=== PATIENT | female | born 1950 | race Caucasian/White ===

== ENCOUNTER 2018-07-20 10:00 | Inpatient (IN) | payer OTHER ==
[~2018-07-20] VITALS: Ht 170.2 cm; Wt 90.7 kg
[2018-07-20] MEDS ORDERED: SODIUM CHLORIDE 0.9% 1,000 ML IV ONE (10:11)
[2018-07-20 10:31] LABS: Basophils # (auto) 0.2 uL; Basophils % (auto) 2.2 % (0.0-2.0); Eosinophils # (auto) 0.2 uL; Eosinophils % (auto) 2.6 % (0.0-7.0); Hematocrit 40.6 % (41.0-53.0); Hemoglobin 13.6 g/dL (13.5-17.5); Lymphocytes # (auto) 1.5 uL; Lymphocytes % (auto) 17.2 % (10.0-50.0); Mean Corpuscular Hemoglobin 28.6 pg (28.0-32.0); Mean Corpuscular Hgb Conc. 33.4 g/dL (32.0-36.0); Mean Corpuscular Volume 85.5 fL (80.0-100.0); Monocytes # (auto) 0.8 uL; Monocytes % (auto) 8.7 % (0.0-12.0); Neutrophils # (auto) 6.1 uL; Neutrophils % (auto) 69.3 % (37.0-80.0); Platelet Count (auto) 262 10^3/uL (140-450); Red Blood Cells 4.74 10^6/uL (4.5-5.90); Red Cell Distribution Width 14.6 % (11.8-14.3); White Blood Cell 8.8 10^3/uL (4.4-10.8)
[2018-07-20 10:47] LABS: INR 0.97 (0.9-1.15); Partial Thromboplastin Time 35.2 sec (23.78-33.04); Prothrombin Time 10.4 sec (9.27-12.13)
[2018-07-20 10:51] LABS: Albumin 3.5 g/dL (3.4-5.0); Anion Gap 7 (5-15); Blood Alcohol < 3.0 mg/dL (0-5); Blood Urea Nitrogen 20 mg/dL (7-18); Calcium 8.7 mg/dL (8.5-10.1); Carbon Dioxide 25 mmol/L (21-32); Chloride 103 mmol/L (98-107); Glucose 151 mg/dL (74-106); Potassium 3.7 mmol/L (3.5-5.1); Sodium 135 mmol/L (136-145)
[2018-07-20 10:57] LABS: Alanine Aminotransferase 26 U/L (16-61); Alkaline Phosphatase 80 U/L (45-117); Aspartate Aminotransferase 15 U/L (15-37); BUN/Creatinine Ratio 15.4; Bilirubin, Total 0.7 mg/dL (0.2-1.0); GFR African American 70 mL/min; GFR Non-African American 58 mL/min; Total Protein 7.7 g/dL (6.4-8.2)
[2018-07-20] MEDS ORDERED: CLOPIDOGREL BISULFATE 75 MG TAB PO ONE (11:00)
[2018-07-20] MEDS ORDERED: LORazepam 2MG/ML-1ML VIAL ONE (11:10)
[2018-07-20 12:17] LABS: Urine Bacteria MOD /hpf (None Seen); Urine Blood Negative /uL (Negative); Urine Specific Gravity 1.006 (1.001-1.035)
[2018-07-20 12:45] LABS: Alcohol, Urine < 3.0 mg/dL (0-5); Amphetamine Screen, Urine NEGATIVE (NEGATIVE); Barbiturate Scree,Urine NEGATIVE (NEGATIVE); Benzodiazephine Screen, Urine NEGATIVE (NEGATIVE); Cannabinoid Screen, Urine NEGATIVE (NEGATIVE); Cocaine Screen, Urine NEGATIVE (NEGATIVE); Opiate Scree,Urine NEGATIVE (NEGATIVE); Phencyclidine Screen, Urine NEGATIVE (NEGATIVE)
[2018-07-20] MEDS ORDERED: LEVEMIR SC (13:42)
[2018-07-20] MEDS ORDERED: BENZ1CAP24 (13:42)
[2018-07-20] MEDS ORDERED: MORP-74 (13:42)
[2018-07-20] MEDS ORDERED: MEMA1TAB2 (13:42)
[2018-07-20] MEDS ORDERED: PROP80CA40 (13:42)
[2018-07-20] MEDS ORDERED: ESCI5TAB14 (13:42)
[2018-07-20] MEDS ORDERED: AMLO2.5T6 (13:42)
[2018-07-20] MEDS ORDERED: DEXTROSE (50%) 50ML SYRG IV PRN (14:00)
[2018-07-20] MEDS ORDERED: cefTRIAXone 1GM/50ML D5W 50 ML IV ONE (14:00)
[2018-07-20] MEDS ORDERED: ACETAMINOPHEN 325 MG TAB PO PRN (14:15)
[2018-07-20] MEDS ORDERED: PROMETHAZINE W/CODEINE 5 ML ORAL SYRUP PO PRN (14:15)
[2018-07-20] MEDS ORDERED: HYDROcodone-ACET 5/325MG TAB PO PRN (14:15)
[2018-07-20] MEDS ORDERED: ONDANSETRON HCL 4 MG/2 ML VIAL IV PRN (14:15)
[2018-07-20] MEDS ORDERED: DOCUSATE SOD 100 MG CAP PO PRN (14:15)
[2018-07-20] MEDS ORDERED: ASPirin-EC 81 mg tab PO ONE (14:15)
[2018-07-20] MEDS: PROPRANOLOL HCL 20 MG TAB PO SCH ×2 (14:25→22:00)
[2018-07-20] MEDS: FAMOTIDINE 20 MG TAB PO SCH (14:25)
[2018-07-20] MEDS ORDERED: HCTZ 25 MG TAB PO ONE (15:30)
[2018-07-20] MEDS ORDERED: cloNIDine HCL 0.1 MG TAB PO ONE (15:30)
[2018-07-20] MEDS ORDERED: glipiZIDE 5 MG TAB PO ONE (15:30)
[2018-07-20] MEDS ORDERED: LOSARTAN POTASSIUM 50 MG TAB PO ONE (15:30)
[2018-07-20] MEDS ORDERED: LORazepam 2MG/ML-1ML VIAL IV ONE (16:15)
[2018-07-20] MEDS: InsuLIN REG 1unit/0.01ml Soln (100units/ml) SC SCH ×2 (17:00→22:50)
[2018-07-20] MEDS: ACCU-CHEK COMFORT CURVE STRIP VI SCH ×2 (17:09→22:51)
[2018-07-20] MEDS ORDERED: LORazepam 2MG/ML-1ML VIAL IV PRN (21:45)
[2018-07-20 22:00] VITALS: BP 146/63
[2018-07-20] MEDS: MORPHINE SULF 30 mg ER tab PO SCH (22:00)
[2018-07-20] MEDS: hydrALAZINE HCL 25 MG TAB PO SCH (22:32)
[2018-07-20] MEDS: cloNIDine HCL 0.1 MG TAB PO SCH (22:48)
[2018-07-20] MEDS: SODIUM CHLOR 0.9% PF (SALINE LOCK) 10ML VIAL/SYR IV SCH (22:48)
[2018-07-20] MEDS: MEMANTINE HCL 5 MG TAB PO SCH (22:49)
[2018-07-20] MEDS: glipiZIDE 5 MG TAB PO SCH (22:49)
[2018-07-20] MEDS: amLODIPine BESYLATE 5 MG TAB PO SCH (22:50)
[2018-07-20] MEDS: INSULIN LANTUS (GLARGINE) 1 /0.01ml (100units/ml) SC SCH (22:51)
[2018-07-21 04:45] LABS: Basophils # (auto) 0.1 uL; Eosinophils # (auto) 0.3 uL; Eosinophils % (auto) 3.4 % (0.0-7.0); Hematocrit 37.9 % (36.0-46.0); Hemoglobin 12.5 g/dL (12.2-16.2); Lymphocytes # (auto) 1.3 uL; Lymphocytes % (auto) 15.6 % (10.0-50.0); Mean Corpuscular Hemoglobin 28.4 pg (28.0-32.0); Mean Corpuscular Volume 85.9 fL (80.0-100.0); Monocytes # (auto) 0.9 uL; Monocytes % (auto) 10.3 % (0.0-12.0); Neutrophils % (auto) 69.7 % (37.0-80.0); Nucleated Red Blood Cells % 0.1 %; Platelet Count (auto) 229 10^3/uL (140-450); Red Blood Cells 4.41 10^6/uL (4.0-5.20); Red Cell Distribution Width 15.4 % (11.8-14.3); White Blood Cell 8.6 10^3/uL (4.4-10.8)
[2018-07-21 05:00] VITALS: BP 135/77
[2018-07-21 05:01] LABS: Albumin 3.1 g/dL (3.4-5.0); Calcium 8.7 mg/dL (8.5-10.1); Potassium 3.8 mmol/L (3.5-5.1)
[2018-07-21 05:05] LABS: BUN/Creatinine Ratio 14.8; Bilirubin, Total 0.6 mg/dL (0.2-1.0); Total Protein 6.8 g/dL (6.4-8.2)
[2018-07-21] MEDS: SODIUM CHLOR 0.9% PF (SALINE LOCK) 10ML VIAL/SYR IV SCH ×3 (06:48→22:05)
[2018-07-21] MEDS: PROPRANOLOL HCL 20 MG TAB PO SCH ×3 (06:49→22:22)
[2018-07-21] MEDS: InsuLIN REG 1unit/0.01ml Soln (100units/ml) SC SCH ×4 (06:50→22:04)
[2018-07-21] MEDS: LEVOTHYROXINE SODIUM 25 MCG TAB PO SCH (06:50)
[2018-07-21] MEDS: ACCU-CHEK COMFORT CURVE STRIP VI SCH ×4 (06:51→22:04)
[2018-07-21 08:40] VITALS: BP 141/68
[2018-07-21] MEDS: cefTRIAXone 1GM/50ML D5W 50 ML IV SCH (09:00)
[2018-07-21] MEDS: cloNIDine HCL 0.1 MG TAB PO SCH ×2 (10:00→21:50)
[2018-07-21] MEDS: glipiZIDE 5 MG TAB PO SCH ×2 (10:00→21:51)
[2018-07-21] MEDS: FAMOTIDINE 20 MG TAB PO SCH (10:00)
[2018-07-21] MEDS: LOSARTAN POTASSIUM 50 MG TAB PO SCH (10:00)
[2018-07-21] MEDS ORDERED: CITALOPRAM HYDROBR 20 MG TAB PO SCH (10:00)
[2018-07-21] MEDS: hydrALAZINE HCL 25 MG TAB PO SCH ×2 (10:00→21:49)
[2018-07-21] MEDS: HCTZ 25 MG TAB PO SCH (10:00)
[2018-07-21] MEDS: MORPHINE SULF 30 mg ER tab PO SCH ×2 (10:00→22:00)
[2018-07-21] MEDS: MULTIPLE VITAMIN TAB PO SCH (10:00)
[2018-07-21] MEDS: MEMANTINE HCL 5 MG TAB PO SCH ×2 (10:00→21:49)
[2018-07-21 12:43] VITALS: BP 109/60
[2018-07-21] MEDS: ASPirin-EC 81 mg tab PO SCH (16:00)
[2018-07-21] MEDS: MECLIZINE HCL 25 MG TAB PO SCH ×2 (16:00→21:49)
[2018-07-21 16:45] VITALS: BP 124/61
[2018-07-21 21:40] VITALS: BP 144/59
[2018-07-21] MEDS: amLODIPine BESYLATE 5 MG TAB PO SCH (21:52)
[2018-07-21] MEDS: INSULIN LANTUS (GLARGINE) 1 /0.01ml (100units/ml) SC SCH (22:04)
[2018-07-21] MEDS ORDERED: PROPRANOLOL HCL 20 MG TAB ONE ×2 (22:09→22:11)
[2018-07-22 05:24] VITALS: BP_SYST 119; BP_SYST 89; BP_DIAS 57; BP_DIAS 61
[2018-07-22] MEDS: SODIUM CHLOR 0.9% PF (SALINE LOCK) 10ML VIAL/SYR IV SCH (06:00)
[2018-07-22] MEDS: PROPRANOLOL HCL 20 MG TAB PO SCH (06:00)
[2018-07-22] MEDS ORDERED: PROPRANOLOL HCL 20 MG TAB ONE ×2 (06:00→06:01)
[2018-07-22] MEDS: LEVOTHYROXINE SODIUM 25 MCG TAB PO SCH (06:18)
[2018-07-22] MEDS: MECLIZINE HCL 25 MG TAB PO SCH (06:18)
[2018-07-22] MEDS: ACCU-CHEK COMFORT CURVE STRIP VI SCH ×2 (07:08→12:07)
[2018-07-22] MEDS: InsuLIN REG 1unit/0.01ml Soln (100units/ml) SC SCH ×2 (07:08→11:30)
[2018-07-22 09:05] LABS: Folate (Folic Acid) 11.37 ng/mL (5.38-24)
[2018-07-22 09:31] VITALS: BP 137/56
[2018-07-22] MEDS: FAMOTIDINE 20 MG TAB PO SCH (09:50)
[2018-07-22] MEDS: cefTRIAXone 1GM/50ML D5W 50 ML IV SCH (09:50)
[2018-07-22] MEDS: HCTZ 25 MG TAB PO SCH (09:51)
[2018-07-22] MEDS: hydrALAZINE HCL 25 MG TAB PO SCH (09:52)
[2018-07-22] MEDS: MEMANTINE HCL 5 MG TAB PO SCH (09:52)
[2018-07-22] MEDS: LOSARTAN POTASSIUM 50 MG TAB PO SCH (09:53)
[2018-07-22] MEDS: MULTIPLE VITAMIN TAB PO SCH (09:54)
[2018-07-22] MEDS: glipiZIDE 5 MG TAB PO SCH (09:54)
[2018-07-22] MEDS: cloNIDine HCL 0.1 MG TAB PO SCH (09:55)
[2018-07-22] MEDS: MORPHINE SULF 30 mg ER tab PO SCH (10:00)
[2018-07-22] MEDS: ASPirin-EC 81 mg tab PO SCH (12:07)
== END 2018-07-22 13:40 | disposition home or self-care (01) | DRG 689 ==
LOC: ER 10:03 → EDSEX 10:03 → OVERFLOW 10:04 → CENTRAL 19:54
PROVIDERS: ADMIT Internal Medicine; ATTEND Internal Medicine Geriatric Medicine
DX: N39.0 Urinary tract infection, site not specified (principal); G93.41 Metabolic encephalopathy; E87.1 Hypo-osmolality and hyponatremia; H81.10 Benign paroxysmal vertigo, unspecified ear; E11.22 Type 2 diabetes mellitus with diabetic chronic kidney disease; E11.21 Type 2 diabetes mellitus with diabetic nephropathy; N18.3 Chronic kidney disease, stage 3 (moderate); Z51.5 Encounter for palliative care; E66.9 Obesity, unspecified; F17.200 Nicotine dependence, unspecified, uncomplicated; H40.9 Unspecified glaucoma; H54.7 Unspecified visual loss; I07.1 Rheumatic tricuspid insufficiency; I12.9 Hypertensive chronic kidney disease with stage 1 through stage 4 chronic kidney disease, or unspecified chronic kidney disease; Z79.4 Long term (current) use of insulin; Z80.1 Family history of malignant neoplasm of trachea, bronchus and lung; Z82.0 Family history of epilepsy and other diseases of the nervous system; Z82.3 Family history of stroke; Z85.118 Personal history of other malignant neoplasm of bronchus and lung; Z86.73 Personal history of transient ischemic attack (TIA), and cerebral infarction without residual deficits; Z90.710 Acquired absence of both cervix and uterus; Z79.899 Other long term (current) drug therapy; Z79.82 Long term (current) use of aspirin; Z68.31 Body mass index [BMI] 31.0-31.9, adult; G62.0 Drug-induced polyneuropathy; T45.1X5A Adverse effect of antineoplastic and immunosuppressive drugs, initial encounter
CPT/HCPCS: 36415; 51702; 70450; 70551; 71045; 80053; 80307; 80320; 81001; 82607; 82746; 82962; 83036; 84443; 84484; 85025; 85610; 85730; 87086; 87088; 87186; 93005; 93306; 93886; 95819; 96361; 96374; 97163; J0696; J1815

== ENCOUNTER 2022-11-29 09:10 | Inpatient (IN) | payer OTHER ==
[~2022-11-29] VITALS: Ht 154.9 cm; Wt 79.4 kg
[~2022-11-29 09:10] MED LIST: AMLO-483; BENZ200C64; ESCI5TAB33; LEVEMIR SC; MEMA1TAB5; MORP30TA5; PROP80CA40
[2022-11-29] MEDS ORDERED: SODIUM CHLORIDE 0.9% 500 ML IVB ONE (09:30)
[2022-11-29] MEDS ORDERED: PANTOPRAZOLE 40 MG/10 ML VIAL INJ IV ONE ×2 (09:30→15:30)
[2022-11-29] MEDS ORDERED: MORPHINE SULFATE 4 MG/ML SYR/VIAL IV ONE (09:30)
[2022-11-29] MEDS ORDERED: ONDANSETRON HCL 4 MG/2 ML VIAL IV ONE (09:30)
[2022-11-29 10:50] LABS: Hematocrit 42.8 % (36.0-46.0); Hemoglobin 14.2 g/dL (12.2-16.2); Mean Corpuscular Hemoglobin 27.7 pg (28.0-32.0); Mean Corpuscular Hgb Conc. 33.2 g/dL (32.0-36.0); Mean Corpuscular Volume 83.4 fL (80.0-100.0); Red Blood Cells 5.13 10^6/uL (4.0-5.20); White Blood Cell 24.5 10^3/uL (4.4-10.8)
[2022-11-29 11:06] LABS: Albumin 2.5 g/dL (3.4-5.0); Potassium 3.3 mmol/L (3.5-5.1)
[2022-11-29 11:09] LABS: BUN/Creatinine Ratio 16.7; Bilirubin, Total 0.8 mg/dL (0.2-1.0); Total Protein 8.1 g/dL (6.4-8.2)
[2022-11-29 11:16] LABS: Basophils % (manual) 0 (0.0-2.0); Blast Cells 0; Metamyelocytes % 0; Myelocytes % 0; Promyelocytes % 0; Reactive Lymphocytes 0
[2022-11-29 11:31] LABS: Urine Bacteria MANY /hpf (None Seen); Urine Blood Negative /uL (Negative); Urine Hyaline Cast FEW /lpf (0 - 2); Urine Mucus FEW (None Seen); Urine Specific Gravity 1.015 (1.001-1.035); Urine WBC 115 /hpf (0 - 5); Urine WBC Clumps PRESENT /hpf (None Seen)
[2022-11-29 11:39] LABS: Band Neutrophils % (manual) 12; Eosinophils % (manual) 1 (0-7); Lymphocytes % (manual) 8 (10.0-50.0); Monocytes % (manual) 8 (0-12)
[2022-11-29] MEDS ORDERED: cefTRIAXone 1GM/50ML D5W 50 ML IV ONE (12:30)
[2022-11-29] MEDS ORDERED: VANCOMYCIN 1GM/250ML 250 ML IV ONE (13:45)
[2022-11-29] MEDS ORDERED: POTASSIUM EFFERVESENT TAB 25 MEQ PO ONE (15:15)
[2022-11-29] MEDS ORDERED: PIPERACILLIN-TAZOB 3.375GM 100 ML IV ONE (15:15)
[2022-11-29] MEDS ORDERED: DEXTROSE (50%) 50ML SYRG IV PRN (15:15)
[2022-11-29] MEDS ORDERED: VANCOMYCIN PER PHARMACY 0 MG IV SCH (15:15)
[2022-11-29] MEDS ORDERED: ACETAMINOPHEN 325 MG TAB PO PRN (15:30)
[2022-11-29 16:46] LABS: HDL Cholesterol 33 mg/dL (40-59); LDL Cholesterol 64 mg/dL (< 100); Triglycerides 115 mg/dL (< 150)
[2022-11-29 16:54] LABS: Cholesterol 101 mg/dL (< 200)
[2022-11-29] MEDS: InsuLIN REG 1unit/0.01ml Soln (100units/ml) SC SCH ×2 (17:00→22:00)
[2022-11-29 17:03] LABS: INR 1.03 (0.9-1.15); Partial Thromboplastin Time 22.3 sec (24.6-33.4)
[2022-11-29] MEDS: ACCU-CHEK COMFORT CURVE STRIP VI SCH ×2 (17:11→22:00)
[2022-11-29] MEDS: SODIUM CHLORIDE 0.9% 1,000 ML IV SCH (17:18)
[2022-11-29] MEDS: HEPARIN SODIUM (PORCINE) 5000 UNITS/ML 1ML VIAL SC SCH (21:29)
[2022-11-29] MEDS: PIPERACILLIN-TAZOB 3.375GM 100 ML IV SCH (22:00)
[2022-11-30] MEDS: MORPHINE SULFATE INJ 2 MG/ml SYRG IV PRN ×3 (00:39→20:25)
[2022-11-30] MEDS: PIPERACILLIN-TAZOB 3.375GM 100 ML IV SCH (06:28)
[2022-11-30] MEDS: SODIUM CHLORIDE 0.9% 1,000 ML IV SCH ×2 (06:29→20:02)
[2022-11-30 06:38] LABS: Basophils # (auto) 0.1 10 ^3/uL (0-0.2); Basophils % (auto) 0.5 % (0.0-2.0); Eosinophils # (auto) 0.3 10 ^3/uL (0-0.8); Eosinophils % (auto) 1.8 % (0.0-7.0); Hematocrit 38.7 % (36.0-46.0); Hemoglobin 12.7 g/dL (12.2-16.2); Lymphocytes # (auto) 1.3 10 ^3/uL (0.4-5.4); Mean Corpuscular Hemoglobin 27.8 pg (28.0-32.0); Mean Corpuscular Hgb Conc. 32.8 g/dL (32.0-36.0); Mean Corpuscular Volume 84.8 fL (80.0-100.0); Monocytes # (auto) 1.7 10 ^3/uL (0-1.3); Monocytes % (auto) 9.2 % (0.0-12.0); Neutrophils % (auto) 81.5 % (37.0-80.0); Nucleated Red Blood Cells % 0.1 %; Red Blood Cells 4.57 10^6/uL (4.0-5.20); White Blood Cell 18.4 10^3/uL (4.4-10.8)
[2022-11-30] MEDS: ACCU-CHEK COMFORT CURVE STRIP VI SCH ×3 (06:42→17:00)
[2022-11-30] MEDS: InsuLIN REG 1unit/0.01ml Soln (100units/ml) SC SCH ×3 (06:43→17:56)
[2022-11-30 06:56] LABS: Albumin 2.3 g/dL (3.4-5.0); Calcium 8.7 mg/dL (8.5-10.1); Potassium 4.2 mmol/L (3.5-5.1)
[2022-11-30 07:03] LABS: BUN/Creatinine Ratio 14.6; Bilirubin, Total 0.9 mg/dL (0.2-1.0); Total Protein 7.2 g/dL (6.4-8.2)
[2022-11-30] MEDS: HEPARIN SODIUM (PORCINE) 5000 UNITS/ML 1ML VIAL SC SCH ×2 (07:38→23:45)
[2022-11-30] MEDS ORDERED: MIDAZOLAM HCL 2MG/2ML 2ml VIAL (1mg/ml) IV ONE (08:15)
[2022-11-30] MEDS ORDERED: LIDOCAINE 2% (LOCAL ANESTH.) PF 5ml SDV ONE (08:15)
[2022-11-30] MEDS ORDERED: fentaNYL CITRATE 100 MCG/2 ML VL IV ONE (08:15)
[2022-11-30] MEDS ORDERED: fentaNYL CITRATE 100 MCG/2 ML VL ONE (08:19)
[2022-11-30] MEDS ORDERED: MIDAZOLAM HCL 2MG/2ML 2ml VIAL (1mg/ml) ONE (08:19)
[2022-11-30] MEDS: PANTOPRAZOLE 40 MG/10 ML VIAL INJ IV SCH (12:32)
[2022-11-30] MEDS: VANCOMYCIN 750mg/250ml 250 ML IV SCH (13:00)
[2022-11-30] MEDS: ONDANSETRON HCL 4 MG/2 ML VIAL IV PRN ×2 (13:35→20:25)
[2022-11-30] MEDS: MEROPENEM 1GM IVPB 100 ML IV SCH (23:46)
[2022-12-01] MEDS: ACCU-CHEK COMFORT CURVE STRIP VI SCH ×5 (00:08→22:44)
[2022-12-01] MEDS: InsuLIN REG 1unit/0.01ml Soln (100units/ml) SC SCH ×5 (00:08→22:45)
[2022-12-01 05:00] VITALS: BP 151/84
[2022-12-01 08:52] VITALS: BP 139/73
[2022-12-01 09:21] LABS: Basophils # (auto) 0.1 10 ^3/uL (0-0.2); Hemoglobin 13.5 g/dL (12.2-16.2)
[2022-12-01 09:25] LABS: Basophils % (auto) 0.4 % (0.0-2.0); Eosinophils # (auto) 0.1 10 ^3/uL (0-0.8); Hematocrit 39.5 % (36.0-46.0); Lymphocytes # (auto) 1.1 10 ^3/uL (0.4-5.4); Lymphocytes % (auto) 8.1 % (10.0-50.0); Mean Corpuscular Hemoglobin 29.4 pg (28.0-32.0); Mean Corpuscular Hgb Conc. 34.2 g/dL (32.0-36.0); Mean Corpuscular Volume 85.8 fL (80.0-100.0); Monocytes % (auto) 7.5 % (0.0-12.0); Neutrophils # (auto) 11.4 10 ^3/uL (1.6-8.6); Red Cell Distribution Width 14.9 % (11.8-14.3); White Blood Cell 13.8 10^3/uL (4.4-10.8)
[2022-12-01] MEDS: MEROPENEM 1GM IVPB 100 ML IV SCH ×2 (09:38→22:48)
[2022-12-01] MEDS: HEPARIN SODIUM (PORCINE) 5000 UNITS/ML 1ML VIAL SC SCH ×2 (09:38→22:46)
[2022-12-01] MEDS: PANTOPRAZOLE 40 MG/10 ML VIAL INJ IV SCH (09:38)
[2022-12-01 09:40] LABS: Calcium 8.3 mg/dL (8.5-10.1)
[2022-12-01 09:44] LABS: BUN/Creatinine Ratio 11.6
[2022-12-01] MEDS ORDERED: MEMA1TAB5 PO (10:33)
[2022-12-01] MEDS ORDERED: GLIP5TAB12 PO (10:33)
[2022-12-01] MEDS ORDERED: CLON0.1T PO (10:33)
[2022-12-01] MEDS ORDERED: AMLO-496 PO (10:33)
[2022-12-01] MEDS ORDERED: PANT40TA2 PO (10:33)
[2022-12-01] MEDS ORDERED: LEVO88TA4 PO (10:33)
[2022-12-01] MEDS ORDERED: PROP80CA42 PO (10:33)
[2022-12-01] MEDS ORDERED: HYDR50TA15 PO (10:33)
[2022-12-01] MEDS ORDERED: FURO40TA4 PO (10:34)
[2022-12-01] MEDS ORDERED: INSLANTI SC (10:34)
[2022-12-01] MEDS ORDERED: DONE1TAB88 PO (10:34)
[2022-12-01] MEDS ORDERED: ALL100T PO (10:34)
[2022-12-01] MEDS ORDERED: BENZ200C64 PO (10:34)
[2022-12-01] MEDS ORDERED: LOSA-39 PO (10:34)
[2022-12-01] MEDS ORDERED: SITA50TA PO (10:34)
[2022-12-01] MEDS: SODIUM CHLORIDE 0.9% 1,000 ML IV SCH (11:31)
[2022-12-01] MEDS: MORPHINE SULFATE INJ 2 MG/ml SYRG IV PRN (11:32)
[2022-12-01 13:00] VITALS: BP 150/83
[2022-12-01] MEDS: VANCOMYCIN 750mg/250ml 250 ML IV SCH (13:36)
[2022-12-01] MEDS: ONDANSETRON HCL 4 MG/2 ML VIAL IV PRN (16:16)
[2022-12-01 17:21] VITALS: BP 137/81
[2022-12-01 22:00] VITALS: BP 150/60
[2022-12-02] MEDS: SODIUM CHLORIDE 0.9% 1,000 ML IV SCH ×2 (00:42→04:40)
[2022-12-02 05:00] VITALS: BP 146/65
[2022-12-02 06:19] LABS: Potassium 3.9 mmol/L (3.5-5.1)
[2022-12-02 06:20] LABS: Basophils # (auto) 0.1 10 ^3/uL (0-0.2); Basophils % (auto) 0.8 % (0.0-2.0); Eosinophils # (auto) 0.2 10 ^3/uL (0-0.8); Eosinophils % (auto) 2.3 % (0.0-7.0); Hematocrit 34.3 % (36.0-46.0); Hemoglobin 11.1 g/dL (12.2-16.2); Lymphocytes % (auto) 11.7 % (10.0-50.0); Mean Corpuscular Hemoglobin 27.7 pg (28.0-32.0); Mean Corpuscular Hgb Conc. 32.5 g/dL (32.0-36.0); Mean Corpuscular Volume 85.2 fL (80.0-100.0); Monocytes % (auto) 11.3 % (0.0-12.0); Neutrophils # (auto) 6.6 10 ^3/uL (1.6-8.6); Neutrophils % (auto) 73.9 % (37.0-80.0); Nucleated Red Blood Cells % 0.2 %; Red Blood Cells 4.02 10^6/uL (4.0-5.20); Red Cell Distribution Width 14.7 % (11.8-14.3)
[2022-12-02 06:26] LABS: BUN/Creatinine Ratio 15.8; Calcium 8.2 mg/dL (8.5-10.1)
[2022-12-02] MEDS: ACCU-CHEK COMFORT CURVE STRIP VI SCH ×4 (06:42→23:25)
[2022-12-02] MEDS: InsuLIN REG 1unit/0.01ml Soln (100units/ml) SC SCH ×4 (06:43→23:32)
[2022-12-02 08:25] VITALS: BP 124/65
[2022-12-02] MEDS: PANTOPRAZOLE 40 MG/10 ML VIAL INJ IV SCH (08:57)
[2022-12-02] MEDS: HEPARIN SODIUM (PORCINE) 5000 UNITS/ML 1ML VIAL SC SCH ×2 (09:01→23:32)
[2022-12-02] MEDS: MEROPENEM 1GM IVPB 100 ML IV SCH ×2 (09:02→23:34)
[2022-12-02 12:20] VITALS: BP 155/73
[2022-12-02] MEDS ORDERED: VANCOMYCIN 1GM/250ML 250 ML IV SCH (13:00)
[2022-12-02 17:00] VITALS: BP 151/69
[2022-12-02 22:00] VITALS: BP 159/78
[2022-12-03 05:00] VITALS: BP 124/56
[2022-12-03] MEDS: ACCU-CHEK COMFORT CURVE STRIP VI SCH ×4 (06:25→22:24)
[2022-12-03] MEDS: InsuLIN REG 1unit/0.01ml Soln (100units/ml) SC SCH ×4 (06:26→22:00)
[2022-12-03 09:00] VITALS: BP 141/77
[2022-12-03] MEDS: PANTOPRAZOLE 40 MG/10 ML VIAL INJ IV SCH (09:21)
[2022-12-03] MEDS: MEROPENEM 1GM IVPB 100 ML IV SCH (09:21)
[2022-12-03] MEDS: HEPARIN SODIUM (PORCINE) 5000 UNITS/ML 1ML VIAL SC SCH ×2 (09:26→22:00)
[2022-12-03 13:00] VITALS: BP 151/74
[2022-12-03 17:00] VITALS: BP 154/61
[2022-12-03] MEDS ORDERED: metFORMIN HYDROCHLORIDE 500 MG TAB PO SCH (18:00)
[2022-12-03] MEDS: ONDANSETRON HCL 4 MG/2 ML VIAL IV PRN (18:36)
[2022-12-03 21:57] VITALS: BP 144/46
[2022-12-03] MEDS: PROPRANOLOL HCL 20 MG TAB PO SCH (22:22)
[2022-12-03] MEDS: CIPROFLOXACIN HCL 500 MG TAB PO SCH (22:23)
[2022-12-03] MEDS: MEMANTINE HCL 5 MG TAB PO SCH (22:24)
[2022-12-03] MEDS: DONEPEZIL HYDROCHLORIDE 5 MG TAB PO SCH (22:24)
[2022-12-03] MEDS: metroNIDAZOLE 500 MG TAB PO SCH (22:25)
[2022-12-04 05:00] VITALS: BP 147/66
[2022-12-04] MEDS: ACCU-CHEK COMFORT CURVE STRIP VI SCH ×4 (06:18→21:12)
[2022-12-04] MEDS: metroNIDAZOLE 500 MG TAB PO SCH ×3 (06:29→21:11)
[2022-12-04] MEDS: LEVOTHYROXINE SODIUM 88 MCG TAB PO SCH (06:30)
[2022-12-04] MEDS: InsuLIN REG 1unit/0.01ml Soln (100units/ml) SC SCH ×4 (06:30→21:14)
[2022-12-04 09:00] VITALS: BP 123/81
[2022-12-04] MEDS: PANTOPRAZOLE 40 MG/10 ML VIAL INJ IV SCH (10:33)
[2022-12-04] MEDS ORDERED: OMNIPAQUE ORAL SOLN 500ml 12mg/ml PO ONE (10:35)
[2022-12-04] MEDS: LOSARTAN POTASSIUM 50 MG TAB PO SCH (10:36)
[2022-12-04] MEDS: PROPRANOLOL HCL 20 MG TAB PO SCH ×2 (10:37→21:11)
[2022-12-04] MEDS: FUROSEMIDE 40 MG TAB PO SCH (10:38)
[2022-12-04] MEDS: MEMANTINE HCL 5 MG TAB PO SCH ×2 (10:39→21:11)
[2022-12-04] MEDS: ALLOPURINOL 100 MG TAB PO SCH (10:39)
[2022-12-04] MEDS: CIPROFLOXACIN HCL 500 MG TAB PO SCH ×2 (10:40→21:10)
[2022-12-04] MEDS: HEPARIN SODIUM (PORCINE) 5000 UNITS/ML 1ML VIAL SC SCH ×2 (10:49→21:14)
[2022-12-04 13:00] VITALS: BP 152/57
[2022-12-04] MEDS ORDERED: IOHEXOL 300 MG/ML 100ML BOTTLE IJ ONE (13:19)
[2022-12-04 17:00] VITALS: BP 135/65
[2022-12-04] MEDS: DONEPEZIL HYDROCHLORIDE 5 MG TAB PO SCH (21:12)
[2022-12-04 21:37] VITALS: BP 144/64
[2022-12-05 05:00] VITALS: BP 150/62
[2022-12-05] MEDS: LEVOTHYROXINE SODIUM 88 MCG TAB PO SCH (06:13)
[2022-12-05] MEDS: metroNIDAZOLE 500 MG TAB PO SCH ×2 (06:13→14:29)
[2022-12-05] MEDS: InsuLIN REG 1unit/0.01ml Soln (100units/ml) SC SCH ×2 (06:27→12:39)
[2022-12-05] MEDS: ACCU-CHEK COMFORT CURVE STRIP VI SCH ×2 (06:27→11:59)
[2022-12-05 09:00] VITALS: BP 141/65
[2022-12-05] MEDS: PANTOPRAZOLE 40 MG/10 ML VIAL INJ IV SCH (09:10)
[2022-12-05] MEDS: HEPARIN SODIUM (PORCINE) 5000 UNITS/ML 1ML VIAL SC SCH (09:11)
[2022-12-05] MEDS: MEMANTINE HCL 5 MG TAB PO SCH (09:12)
[2022-12-05] MEDS: ALLOPURINOL 100 MG TAB PO SCH (09:13)
[2022-12-05] MEDS: PROPRANOLOL HCL 20 MG TAB PO SCH (09:13)
[2022-12-05] MEDS: FUROSEMIDE 40 MG TAB PO SCH (09:13)
[2022-12-05] MEDS: LOSARTAN POTASSIUM 50 MG TAB PO SCH (09:14)
[2022-12-05] MEDS: CIPROFLOXACIN HCL 500 MG TAB PO SCH (09:14)
[2022-12-05] MEDS ORDERED: CIPR-173 PO (11:36)
[2022-12-05] MEDS ORDERED: METR500T PO (11:36)
[2022-12-05 13:00] VITALS: BP 139/74
[2022-12-05 13:55] VITALS: BP 139/74
== END 2022-12-05 14:50 | disposition home or self-care (01) | DRG 758 ==
LOC: ER 09:10 → OVERFLOW 15:20 → WEST WING 11-30 21:50
PROVIDERS: ADMIT Nurse Practitioner Family; ATTEND Internal Medicine Geriatric Medicine
PROC: 0W9J30Z Drainage of Pelvic Cavity with Drainage Device, Percutaneous Approach (ICD-10-PCS; principal; 2022-11-30)
DX: N73.9 Female pelvic inflammatory disease, unspecified (principal); E46 Unspecified protein-calorie malnutrition; E87.1 Hypo-osmolality and hyponatremia; N39.0 Urinary tract infection, site not specified; E66.01 Morbid (severe) obesity due to excess calories; E78.5 Hyperlipidemia, unspecified; E87.6 Hypokalemia; K21.9 Gastro-esophageal reflux disease without esophagitis; I12.9 Hypertensive chronic kidney disease with stage 1 through stage 4 chronic kidney disease, or unspecified chronic kidney disease; N18.30 Chronic kidney disease, stage 3 unspecified; Z20.822 Contact with and (suspected) exposure to COVID-19; E11.22 Type 2 diabetes mellitus with diabetic chronic kidney disease; J44.9 Chronic obstructive pulmonary disease, unspecified; Z80.3 Family history of malignant neoplasm of breast; Z83.3 Family history of diabetes mellitus; Z85.118 Personal history of other malignant neoplasm of bronchus and lung; Z85.3 Personal history of malignant neoplasm of breast; Z90.710 Acquired absence of both cervix and uterus; Z92.21 Personal history of antineoplastic chemotherapy; Z68.33 Body mass index [BMI] 33.0-33.9, adult
CPT/HCPCS: 36415; 71250; 72192; 74176; 74177; 75989; 80048; 80053; 80061; 80202; 81001; 82962; 83036; 83690; 83735; 83986; 84443; 85007; 85025; 85027; 85610; 85730; 87040; 87077; 87186; 87205; 87426; 89051; 93005; 96361; 96365; 96366; 96375; C1729; C9113; G0378; J0696; J1815; J2001; J2185; J2250; J2405; J2543